=== PATIENT | male | born 1970 | race Caucasian/White ===

== ENCOUNTER 2020-03-24 09:30 | Emergency (ER) | payer SELFPAY ==
[2020-03-24 09:37] VITALS: BP 144/89; PULSE 79; RESP 12; TEMP 36.8; O2SAT 99; BMI 26.1
[2020-03-24 09:55] LABS: Bacteria Urine None Seen
[2020-03-24 09:59] LABS: RBC Urine 5-10/HPF (0-5/HPF); WBC Urine 30-100/HPF (0-5/HPF)
[2020-03-24 10:00] LABS: Culture Indicated Urine Specimen Cultured; Squamous Epithelial Cell Urine 0-1 /HPF (0-5/HPF)
--- NOTE | 2020-03-24 10:20 | ED_ITS ---
HPI - Male Genitourinary General Chief complaint: Urogenital-Male Stated complaint: low back pain/kidney issues x2 weeks Time Seen by Provider: 03/24/20 10:18 Source: patient Mode of arrival: Ambulatory Limitations: no limitations History of Present Illness HPI Narrative: This is a 49-year-old male who comes to the emergency department with complaint of flank pain, occasional testicular pain as well as discomfort with urination although he denies dysuria he states it just sort of hurts in his lower belly when he urinates. He has a sense of urgency and frequency with incomplete emptying. Patient has had symptoms for several days to a week. He has not had fevers but has felt unwell. He has not had any nausea or vomiting. He denies any abdominal pain at this point. He states flank pains been intermittent on both sides and not constant. He denies any penile discharge or hematuria. Patient is sexually active, he states he is . He denies any prior infections. Patient denies any medical issues, no prior surgeries. Denies any allergies to medications. Related Data Previous Rx's Medication Instructions Recorded levofloxacin [Levaquin] 500 mg PO DAILY #10 tab 03/24/20 Review of Systems Review of Systems ROS Unobtainable: All systems reviewed & are unremarkable except as noted in HPI and below Patient History Social History Smoking Status: Never smoker Smoking Status: Never smoker alcohol intake frequency: a few times a month Substance Use Type: marijuana Exam Narrative Exam Narrative: GENERAL: Alert and oriented x three, well-nourished male in mild distress. HEENT: Head normocephalic, atraumatic, EOMI, pupils reactive, face symmetric, moist mucous membranes NECK: Supple, full range of motion CARDIOVASCULAR: Regular rate and rhythm without murmurs, rubs or gallops. RESPIRATORY: Breath sounds equal bilaterally, no wheezes rales or rhonchi. ABDOMEN: Soft, nontender. Normoactive bowel sounds all 4 quadrants. No guarding or rebound, rigidity, no mass : mild bilateral CVA tenderness, male exam deferred. EXTREMITIES: Normal range of motion, no clubbing or edema. Neurovascularly intact NEUROLOGICAL: Cranial nerves II through XII grossly intact. Moving all extremities SKIN: Warm, dry, no petechiae, no rashes or lesions. Initial Vital Signs Initial Vital Signs: Vital Signs Temperature 98.3 F 03/24/20 09:37 Pulse Rate 79 03/24/20 09:37 Respiratory Rate 12 03/24/20 09:37 Blood Pressure 144/89 H 03/24/20 09:37 Pulse Oximetry 99 03/24/20 09:37 Course Orders Ordered: ED Orders 03/24/20 09:42 Chlamydia Gonorrhea PCR -URINE Stat Urine Culture Stat Urine Microscopic Stat Vital Signs Vital signs: Vital Signs - 8 hr 03/24/20 09:37 03/24/20 10:52 Temperature 98.3 F Pulse Rate 79 72 Respiratory Rate 12 16 Blood Pressure 144/89 H Pulse Oximetry 99 99 MDM - Male Genitourinary Lab Data Labs: Lab Results 03/24/20 03/24/20 Range/Units 09:42 09:42 Urine RBC 5-10/hpf H (0-5/HPF) Urine WBC 30-100/hpf H (0-5/HPF) Ur Squamous Epith Cells 0-1 /hpf (0-5/HPF) Urine Bacteria None seen (None) Ur Culture Indicated? Specimen cultured Ur Chlamydia DNA (PCR) Not detected N gonorrhoeae DNA (PCR) Not detected Urine Dip Bedside Urine Glucose Negative Bedside Urine Bilirubin - Negative Bedside Urine Ketone - Negative Urine Specific [place] 1.010 Bedside Urine Occult Blood + Bedside Urine pH 6.0 Bedside Urine Protein +/- 15 Bedside Urine Urobilinogen - Negative Bedside Urine Nitrite - Negative Bedside Urine Leukocytes +++ 500 Esterase MDM Narrative Medical decision making narrative: Patient urine does show leukocyte esterase with symptoms was started on Levaquin. He has had occasional intermittent testicular pain but not constantly so discussed that orchitis epididymitis might be on the differential and covered from this perspective. Patient did have urine gonorrhea chlamydia sent as well but had not resulted prior to discharge. Urine culture is pending and patient aware that tests are pending. Urine GC is negative. Discharge Plan Departure Patient Disposition: Home Clinical Impression: Urinary tract infection Discharge Date/Time: 03/24/20 10:53 Instructions: DI for Urinary Tract Infection (UTI) Activity Restrictions/Additional Instructions: Follow up in the next 5-7 days if your symptoms are not improving. Your urine does show signs suspicious for infection, culture and additional lab tests are pending. If these show changes that you need additional or changes to your medication you will be contacted by phone. Take antibiotics once daily until gone. Continue to make sure your hydrating with plenty of fluids. Return to the ER for fevers, increasing back or flank pain persistent vomiting, new abdominal pain, increasing or new testicular pain, penile discharge or other new or concerning symptoms. Prescriptions: New levofloxacin [Levaquin] 500 mg tablet 500 mg PO DAILY Qty: 10 RF: 0
[2020-03-24 10:52] VITALS: PULSE 72; RESP 16; O2SAT 99
[2020-03-24 12:47] LABS: Urine N gonorrhoeae NOT DETECTED
[2020-03-24 13:12] LABS: Urine Chlamydia NOT DETECTED
== END 2020-03-24 10:53 | disposition home or self-care (01) ==
PROVIDERS: Emergency Provider Emergency Medicine
DX: N39.0 Urinary tract infection, site not specified (principal)
CPT/HCPCS: 81003; 81015; 87077; 87086; 87186; 87491; 87591; 99282

== ENCOUNTER → 2020-09-15 09:38 | Outpatient (CLI) | payer OTHER, MEDICAID, SELFPAY ==
[2020-09-15 10:21] LABS: Cholesterol 176 mg/dL (140-199); HDL Cholesterol 64 mg/dL (40-60); Hemoglobin A1C% w Est Avg Glu 5.3 % (4.0-6.0); LDL Cholesterol Calculated 95 mg/dL (<100); Triglycerides 83 mg/dL (35-150)
== END ==
PROVIDERS: PCP Family Medicine; Referring Provider Family Medicine; Visit Provider Family Medicine
DX: Z00.01 Encounter for general adult medical examination with abnormal findings (principal)
CPT/HCPCS: 36415; 80061; 83036

== ENCOUNTER 2021-05-05 22:27 | Emergency (ER) | payer OTHER, MEDICAID, SELFPAY ==
--- NOTE | 2021-05-05 23:45 | PC.NURSE ---
This [employer]ER requests if Pt is willing to provide a urine sample and lab draw. Pt states that is western medicine and there is NO fucking way you are going to take anything out of my body Pt wants a phone to contact someone refered to as a shaman named Debbi, Pt states She knows how to help him complete his mission and one way or another he will leave to do what needs to be done and no one is going to stop me.
--- NOTE | 2021-05-06 00:21 | PC.NURSE ---
Pt agitated stating i can get anyone to do whatever i want Demanding that we call Debbi Burton to come pick him up. 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 Per PD TESSIE report pt was given comor[place] herbal medication in which brought him a sense of enlightenment and has become acutely psychotic since. Was found at [facility] naked speaking nonsensical things to people and banging on car windows. Refusing vitals, refusing to given urine or obtain blood sample because fuck that, that's western medicine and its bullshit Pt scared that we are going to lock him in room. Advised we legally cannot lock him in room unless he becomes a threat to staff or others. Contracted with pt for safety.
--- NOTE | 2021-05-06 00:27 | ED_ITS ---
HPI - Psych <Jes Apple MD - Last Filed: 05/12/21 18:21> General Chief Complaint: Psychiatric Symptoms Stated Complaint: psych Time Seen by Provider: 05/06/21 00:27 Source: police Mode of arrival: Ambulatory History of Present Illness HPI Narrative: 50-year-old gentleman with a history of depression, drug use including cocaine and methamphetamine in the past brought in by police with concerns for janice. Per report patient was at [facility] and ran into some people who operate the [employer]. Their website indicates that they use ayahuasca (a hallucinogen) to help with multiple different medical issues. Patient states that he used this substance on Sunday and since then has been having increasing grandiose ideas delusional thinking and increasingly manic type behavior. He apparently gave away all of his clothes because there were others that needed at more than he did. He was approaching others including children with ferns as is only covering. He was quite pressured and agitated an d talking about people going to in the town burning down. Patient indicated that he was off of his Effexor and trazodone and did try the [place]cu[place] herb offered to him a number of days ago and feels that ?it enlightened? him. In the emergency room he is agitated, pressured, tangential and delusional. Hostile and aggressive at times than retreating to the back of the room at other times. Related Data Previous Rx's Medication Instructions Recorded terbinafine HCl 250 mg tablet 250 mg PO DAILY #96 tab 03/03/21 trazodone 50 mg tablet 50 mg PO BEDTIME PRN #90 tab 04/20/21 venlafaxine 150 mg 150 mg PO DAILY #90 cap 04/25/21 capsule,extended release 24 hr venlafaxine 75 mg capsule,extended 75 mg PO DAILY #90 cap 04/25/21 release 24 hr Allergies Allergy/AdvReac Type Severity Reaction Status Date / Time No Known Drug Allergies Allergy Unverified 09/15/20 08:59 Review of Systems <Jes Apple MD - Last Filed: 05/12/21 18:21> Review of Systems ROS Unobtainable: Unobtainable due to mental status/LOC Patient History <Jes Apple MD - Last Filed: 05/12/21 18:21> Medical History Anxiety Chicken pox (~1979) Colitis Cystitis Depression Onychomycosis Sleep disorder Substance abuse Surgical History History of vasectomy Social History Smoking Status: Never smoker Smoking Status: Never smoker alcohol intake frequency: a few times a month Substance Use Type: marijuana Exam <Jes Apple MD - Last Filed: 05/12/21 18:21> Narrative Exam Narrative: Exam in general is limited by his acute psychosis, aggressive behavior and unwillingness to allow exam General: Agitated, disheveled Respiratory: Able to speak in full sentences, no obvious respiratory distress Skin: No obvious rashes, warm and dry Neurologic: Grossly intact no obvious asymmetries or abnormalities Psych: Pressured speech, grandiose thoughts, tangential Initial Vital Signs Initial Vital Signs: Vital Signs Pulse Rate 61 05/06/21 03:45 Respiratory Rate 14 05/06/21 03:45 Pulse Oximetry 97 05/06/21 03:45 <Shayla Vital DO - Last Filed: 05/06/21 20:19> Initial Vital Signs Initial Vital Signs: Vital Signs Pulse Rate 61 05/06/21 03:45 Respiratory Rate 14 05/06/21 03:45 Pulse Oximetry 97 05/06/21 03:45 Course <Jes Apple MD - Last Filed: 05/12/21 18:21> Orders Ordered: Discontinued Medications Diphenhydramine HCl (Diphenhydramine 50 Mg/Ml Vial) 50 mg IM NOW ONE Stop: 05/06/21 01:01 Last Admin: 05/06/21 02:33 Dose: 50 mg Documented by: [email or web address] Haloperidol (Haloperidol 5 Mg/Ml Vial) 10 mg IM NOW ONE Stop: 05/06/21 01:01 Last Admin: 05/06/21 02:32 Dose: 10 mg Documented by: [email or web address] Lorazepam (Lorazepam 2 Mg/Ml Inj) 2 mg IM NOW ONE Stop: 05/06/21 01:01 Last Admin: 05/06/21 02:32 Dose: 2 mg Documented by: [email or web address] Vital Signs Vital signs: Vital Signs - 8 hr 05/06/21 17:47 Pulse Rate 90 Blood Pressure 129/75 Pulse Oximetry 96 <Shayla Vital DO - Last Filed: 05/06/21 20:19> Orders Ordered: Discontinued Medications Diphenhydramine HCl (Diphenhydramine 50 Mg/Ml Vial) 50 mg IM NOW ONE Stop: 05/06/21 01:01 Last Admin: 05/06/21 02:33 Dose: 50 mg Documented by: [email or web address] Haloperidol (Haloperidol 5 Mg/Ml Vial) 10 mg IM NOW ONE Stop: 05/06/21 01:01 Last Admin: 05/06/21 02:32 Dose: 10 mg Documented by: [email or web address] Lorazepam (Lorazepam 2 Mg/Ml Inj) 2 mg IM NOW ONE Stop: 05/06/21 01:01 Last Admin: 05/06/21 02:32 Dose: 2 mg Documented by: SARA Vital Signs Vital signs: Vital Signs - 8 hr 05/06/21 17:47 Pulse Rate 90 Blood Pressure 129/[address] [facility] - Psych <Jes Apple MD - Last Filed: 05/12/21 18:21> Medical Records Attestation: I reviewed the patient's medical records. Lab Data Attestation: I reviewed the patient's lab results. Result diagrams: 05/06/21 18:40 05/06/21 18:40 Labs: Lab Results 05/06/21 05/06/21 05/06/21 Range/Units 11:00 11:50 11:50 WBC 8.7 (4.5-11.0) X10^3/uL RBC 4.42 L (4.5-5.9) X10^6/uL Hgb 13.7 (13.5-17.5) g/dL Hct 40.5 L (41-53) % MCV 91.8 (80-100) fL MCH 31.1 (26-34) PG MCHC 33.8 (30-36) % RDW 13.4 (11.6-14.8) % Plt Count 282 (150-400) X10^3/uL Neut % (Auto) 74.1 (50-75) % Lymph % (Auto) 17.2 L (25-40) % [place] % (Auto) 8.1 (3-14) % Eos % (Auto) 0.2 L (2-4) % Baso % (Auto) 0.4 (0-2) % Neut # (Auto) 6500 (9178-9224) /uL Lymph # (Auto) 1500 (6999-3398) /uL [place] # (Auto) 700 (0-900) /uL Eos # (Auto) 0 (0-450) /uL Baso # (Auto) 0 (0-100) /uL Sodium 137 (137-145) mmol/L Potassium 4.2 (3.4-5.1) mmol/L Chloride 101 (98-107) mmol/L Carbon Dioxide 24 (22-32) mmol/L BUN 15 (9-20) mg/dL Creatinine 0.67 (0.66-1.25) mg/dL Estimated GFR > 60.0 (>60) mL/min BUN/Creatinine Ratio 22.4 H (6-22) Glucose 85 (70-100) mg/dL Calcium 9.6 (8.4-10.2) mg/dL Total Bilirubin 1.3 (0.2-1.3) mg/dL AST 96 H (17-59) IU/L ALT 40 (<50) IU/L Alkaline Phosphatase 85 (38-126) U/L Total Protein 7.9 (6.3-8.2) g/dL Albumin 4.8 (3.5-5.0) g/dL Globulin 3.1 (1.7-4.1) g/dL Albumin/Globulin Ratio 1.5 (1.0-2.8) U Opiates 300ng/mL cut Negative (Negative) Ur Oxycodone Screen Negative (Negative) Urine Methadone Screen Negative (Negative) Ur Barbiturates Screen Negative (Negative) U Tricyclic Antidepress Negative (Negative) Ur Phencyclidine Scrn Negative (Negative) Ur Amphetamines Screen Negative (Negative) U Methamphetamines Scrn Negative (Negative) Ur MDMA Scrn (Ecstasy) Negative (Negative) U Benzodiazepines Scrn Negative (Negative) Urine Cocaine Screen Negative (Negative) U Marijuana (THC) Screen Positive H (Negative) Ethyl Alcohol < 10 ( - 10) mg/dL SARS-CoV-2 (PCR) (Negative) 05/06/21 05/06/21 05/06/21 Range/Units 13:12 17:45 18:40 WBC 8.7 (4.5-11.0) X10^3/uL RBC 4.30 L (4.5-5.9) X10^6/uL Hgb 13.4 L (13.5-17.5) g/dL Hct 39.3 L (41-53) % MCV 91.4 (80-100) fL MCH 31.1 (26-34) PG MCHC 34.0 (30-36) % RDW 13.2 (11.6-14.8) % Plt Count 290 (150-400) X10^3/uL Neut % (Auto) 63.0 (50-75) % Lymph % (Auto) 26.0 (25-40) % [place] % (Auto) 9.8 (3-14) % Eos % (Auto) 0.7 L (2-4) % Baso % (Auto) 0.5 (0-2) % Neut # (Auto) 5500 (8016-4750) /uL Lymph # (Auto) 2300 (3390-9588) /uL [place] # (Auto) 900 (0-900) /uL Eos # (Auto) 100 (0-450) /uL Baso # (Auto) 0 (0-100) /uL Sodium (137-145) mmol/L Potassium (3.4-5.1) mmol/L Chloride (98-107) mmol/L Carbon Dioxide (22-32) mmol/L BUN (9-20) mg/dL Creatinine (0.66-1.25) mg/dL Estimated GFR (>60) mL/min BUN/Creatinine Ratio (6-22) Glucose (70-100) mg/dL Calcium (8.4-10.2) mg/dL Total Bilirubin (0.2-1.3) mg/dL AST (17-59) IU/L ALT (<50) IU/L Alkaline Phosphatase (38-126) U/L Total Protein (6.3-8.2) g/dL Albumin (3.5-5.0) g/dL Globulin (1.7-4.1) g/dL Albumin/Globulin Ratio (1.0-2.8) U Opiates 300ng/mL cut (Negative) Ur Oxycodone Screen (Negative) Urine Methadone Screen (Negative) Ur Barbiturates Screen (Negative) U Tricyclic Antidepress (Negative) Ur Phencyclidine Scrn (Negative) Ur Amphetamines Screen (Negative) U Methamphetamines Scrn (Negative) Ur MDMA Scrn (Ecstasy) (Negative) U Benzodiazepines Scrn (Negative) Urine Cocaine Screen (Negative) U Marijuana (THC) Screen (Negative) Ethyl Alcohol ( - 10) mg/dL SARS-CoV-2 (PCR) Negative Negative (Negative) 05/06/21 05/06/21 Range/Units 18:40 19:05 WBC (4.5-11.0) X10^3/uL RBC (4.5-5.9) X10^6/uL Hgb (13.5-17.5) g/dL Hct (41-53) % MCV (80-100) fL MCH (26-34) PG MCHC (30-36) % RDW (11.6-14.8) % Plt Count (150-400) X10^3/uL Neut % (Auto) (50-75) % Lymph % (Auto) (25-40) % [place] % (Auto) (3-14) % Eos % (Auto) (2-4) % Baso % (Auto) (0-2) % Neut # (Auto) (4805-4910) /uL Lymph # (Auto) (9683-9206) /uL [place] # (Auto) (0-900) /uL Eos # (Auto) (0-450) /uL Baso # (Auto) (0-100) /uL Sodium 137 (137-145) mmol/L Potassium 3.9 (3.4-5.1) mmol/L Chloride 102 (98-107) mmol/L Carbon Dioxide 28 (22-32) mmol/L BUN 16 (9-20) mg/dL Creatinine 0.62 L (0.66-1.25) mg/dL Estimated GFR > 60.0 (>60) mL/min BUN/Creatinine Ratio 25.8 H (6-22) Glucose 132 H (70-100) mg/dL Calcium 9.7 (8.4-10.2) mg/dL Total Bilirubin 0.7 (0.2-1.3) mg/dL AST 88 H (17-59) IU/L ALT 40 (<50) IU/L Alkaline Phosphatase 69 (38-126) U/L Total Protein 7.4 (6.3-8.2) g/dL Albumin 4.5 (3.5-5.0) g/dL Globulin 2.9 (1.7-4.1) g/dL Albumin/Globulin Ratio 1.6 (1.0-2.8) U Opiates 300ng/mL cut Negative (Negative) Ur Oxycodone Screen Negative (Negative) Urine Methadone Screen Negative (Negative) Ur Barbiturates Screen Negative (Negative) U Tricyclic Antidepress Negative (Negative) Ur Phencyclidine Scrn Negative (Negative) Ur Amphetamines Screen Negative (Negative) U Methamphetamines Scrn Negative (Negative) Ur MDMA Scrn (Ecstasy) Negative (Negative) U Benzodiazepines Scrn Positive H (Negative) Urine Cocaine Screen Negative (Negative) U Marijuana (THC) Screen Positive H (Negative) Ethyl Alcohol < 10 ( - 10) mg/dL SARS-CoV-2 (PCR) (Negative) Urine Dip Bedside Urine Glucose Negative Bedside Urine Bilirubin - Negative Bedside Urine Ketone ++ 40 Urine Specific [place] 1.025 Bedside Urine Occult Blood - Negative Bedside Urine pH 6.0 Bedside Urine Protein - Negative Bedside Urine Urobilinogen - Negative Bedside Urine Nitrite - Negative Bedside Urine Leukocytes - Negative Esterase MDM Narrative Medical decision making narrative: 50-year-old gentleman presents with manic type behavior. He has a history of depression but has not been diagnosed specifically with bipolar depression, also does not follow-up with psychiatric providers. Complete exam is not permitted, he does not allow blood work and with significant coaxing he does allow injections (Benadryl, Ativan, Haldol) so that he can finally sleep. He notes he has not slept in a number of days. He was trying to negotiate allowing the injections so that he could sleep and then being allowed to contact the show man who provided him with the [place]cuad[place] herbs that allowed him to be ?enlightened? period. Sleeping nicely after the sedation is administered. Will need to be further evaluated once he awakes hopefully a bit more sobered. <Shayla Vital, DO - Last Filed: 05/06/21 20:19> Lab Data Labs: Lab Results 05/06/21 05/06/21 05/06/21 Range/Units 11:00 11:50 11:50 WBC 8.7 (4.5-11.0) X10^3/uL RBC 4.42 L (4.5-5.9) X10^6/uL Hgb 13.7 (13.5-17.5) g/dL Hct 40.5 L (41-53) % MCV 91.8 (80-100) fL MCH 31.1 (26-34) PG MCHC 33.8 (30-36) % RDW 13.4 (11.6-14.8) % Plt Count 282 (150-400) X10^3/uL Neut % (Auto) 74.1 (50-75) % Lymph % (Auto) 17.2 L (25-40) % [place] % (Auto) 8.1 (3-14) % Eos % (Auto) 0.2 L (2-4) % Baso % (Auto) 0.4 (0-2) % Neut # (Auto) 6500 (8471-1106) /uL Lymph # (Auto) 1500 (4671-5262) /uL [place] # (Auto) 700 (0-900) /uL Eos # (Auto) 0 (0-450) /uL Baso # (Auto) 0 (0-100) /uL Sodium 137 (137-145) mmol/L Potassium 4.2 (3.4-5.1) mmol/L Chloride 101 (98-107) mmol/L Carbon Dioxide 24 (22-32) mmol/L BUN 15 (9-20) mg/dL Creatinine 0.67 (0.66-1.25) mg/dL Estimated GFR > 60.0 (>60) mL/min BUN/Creatinine Ratio 22.4 H (6-22) Glucose 85 (70-100) mg/dL Calcium 9.6 (8.4-10.2) mg/dL Total Bilirubin 1.3 (0.2-1.3) mg/dL AST 96 H (17-59) IU/L ALT 40 (<50) IU/L Alkaline Phosphatase 85 (38-126) U/L Total Protein 7.9 (6.3-8.2) g/dL Albumin 4.8 (3.5-5.0) g/dL Globulin 3.1 (1.7-4.1) g/dL Albumin/Globulin Ratio 1.5 (1.0-2.8) U Opiates 300ng/mL cut Negative (Negative) Ur Oxycodone Screen Negative (Negative) Urine Methadone Screen Negative (Negative) Ur Barbiturates Screen Negative (Negative) U Tricyclic Antidepress Negative (Negative) Ur Phencyclidine Scrn Negative (Negative) Ur Amphetamines Screen Negative (Negative) U Methamphetamines Scrn Negative (Negative) Ur MDMA Scrn (Ecstasy) Negative (Negative) U Benzodiazepines Scrn Negative (Negative) Urine Cocaine Screen Negative (Negative) U Marijuana (THC) Screen Positive H (Negative) Ethyl Alcohol < 10 ( - 10) mg/dL SARS-CoV-2 (PCR) (Negative) 05/06/21 05/06/21 05/06/21 Range/Units 13:12 17:45 18:40 WBC 8.7 (4.5-11.0) X10^3/uL RBC 4.30 L (4.5-5.9) X10^6/uL Hgb 13.4 L (13.5-17.5) g/dL Hct 39.3 L (41-53) % MCV 91.4 (80-100) fL MCH 31.1 (26-34) PG MCHC 34.0 (30-36) % RDW 13.2 (11.6-14.8) % Plt Count 290 (150-400) X10^3/uL Neut % (Auto) 63.0 (50-75) % Lymph % (Auto) 26.0 (25-40) % [place] % (Auto) 9.8 (3-14) % Eos % (Auto) 0.7 L (2-4) % Baso % (Auto) 0.5 (0-2) % Neut # (Auto) 5500 (5041-8024) /uL Lymph # (Auto) 2300 (9150-6733) /uL [place] # (Auto) 900 (0-900) /uL Eos # (Auto) 100 (0-450) /uL Baso # (Auto) 0 (0-100) /uL Sodium (137-145) mmol/L Potassium (3.4-5.1) mmol/L Chloride (98-107) mmol/L Carbon Dioxide (22-32) mmol/L BUN (9-20) mg/dL Creatinine (0.66-1.25) mg/dL Estimated GFR (>60) mL/min BUN/Creatinine Ratio (6-22) Glucose (70-100) mg/dL Calcium (8.4-10.2) mg/dL Total Bilirubin (0.2-1.3) mg/dL AST (17-59) IU/L ALT (<50) IU/L Alkaline Phosphatase (38-126) U/L Total Protein (6.3-8.2) g/dL Albumin (3.5-5.0) g/dL Globulin (1.7-4.1) g/dL Albumin/Globulin Ratio (1.0-2.8) U Opiates 300ng/mL cut (Negative) Ur Oxycodone Screen (Negative) Urine Methadone Screen (Negative) Ur Barbiturates Screen (Negative) U Tricyclic Antidepress (Negative) Ur Phencyclidine Scrn (Negative) Ur Amphetamines Screen (Negative) U Methamphetamines Scrn (Negative) Ur MDMA Scrn (Ecstasy) (Negative) U Benzodiazepines Scrn (Negative) Urine Cocaine Screen (Negative) U Marijuana (THC) Screen (Negative) Ethyl Alcohol ( - 10) mg/dL SARS-CoV-2 (PCR) Negative Negative (Negative) 05/06/21 05/06/21 Range/Units 18:40 19:05 WBC (4.5-11.0) X10^3/uL RBC (4.5-5.9) X10^6/uL Hgb (13.5-17.5) g/dL Hct (41-53) % MCV (80-100) fL MCH (26-34) PG MCHC (30-36) % RDW (11.6-14.8) % Plt Count (150-400) X10^3/uL Neut % (Auto) (50-75) % Lymph % (Auto) (25-40) % [place] % (Auto) (3-14) % Eos % (Auto) (2-4) % Baso % (Auto) (0-2) % Neut # (Auto) (2892-3167) /uL Lymph # (Auto) (3824-5919) /uL [place] # (Auto) (0-900) /uL Eos # (Auto) (0-450) /uL Baso # (Auto) (0-100) /uL Sodium 137 (137-145) mmol/L Potassium 3.9 (3.4-5.1) mmol/L Chloride 102 (98-107) mmol/L Carbon Dioxide 28 (22-32) mmol/L BUN 16 (9-20) mg/dL Creatinine 0.62 L (0.66-1.25) mg/dL Estimated GFR > 60.0 (>60) mL/min BUN/Creatinine Ratio 25.8 H (6-22) Glucose 132 H (70-100) mg/dL Calcium 9.7 (8.4-10.2) mg/dL Total Bilirubin 0.7 (0.2-1.3) mg/dL AST 88 H (17-59) IU/L ALT 40 (<50) IU/L Alkaline Phosphatase 69 (38-126) U/L Total Protein 7.4 (6.3-8.2) g/dL Albumin 4.5 (3.5-5.0) g/dL Globulin 2.9 (1.7-4.1) g/dL Albumin/Globulin Ratio 1.6 (1.0-2.8) U Opiates 300ng/mL cut Negative (Negative) Ur Oxycodone Screen Negative (Negative) Urine Methadone Screen Negative (Negative) Ur Barbiturates Screen Negative (Negative) U Tricyclic Antidepress Negative (Negative) Ur Phencyclidine Scrn Negative (Negative) Ur Amphetamines Screen Negative (Negative) U Methamphetamines Scrn Negative (Negative) Ur MDMA Scrn (Ecstasy) Negative (Negative) U Benzodiazepines Scrn Positive H (Negative) Urine Cocaine Screen Negative (Negative) U Marijuana (THC) Screen Positive H (Negative) Ethyl Alcohol < 10 ( - 10) mg/dL SARS-CoV-2 (PCR) (Negative) Urine Dip Bedside Urine Glucose Negative Bedside Urine Bilirubin - Negative Bedside Urine Ketone ++ 40 Urine Specific [place] 1.025 Bedside Urine Occult Blood - Negative Bedside Urine pH 6.0 Bedside Urine Protein - Negative Bedside Urine Urobilinogen - Negative Bedside Urine Nitrite - Negative Bedside Urine Leukocytes - Negative Esterase MDM Narrative Medical decision making narrative: Patient woken around 9:30 a.m.. Was screaming yelling and banging on the door. After discussion he realize he is at the hospital. He states he has been taking any drugs. He is requesting to leave. Patient calmed after he was given something to eat and drink. Patient gave labs, urine was positive for THC. He did not have any other major lab abnormalities that would cause his symptoms today. Patient himself states that he is feeling just fine and does not have any issues today. He was seen by social work. While here he was cooperative door was open and he eloped but then returned under his own power. Patient drug screen be performed which do not show any major changes although his tox screen is positive for benzos but he was given benzos here overnight so this is not unexpected. DCR was contacted and is planning to detain the patient. Patient was accepted by Cristian at [facility] with plan for transfer around 2129 as an involuntary patient. Restraint [id number] <Jes Apple MD - Last Filed: 05/12/21 18:21> Restraint Izad-yw-Kkeg Evaluation Irip-oy-Iwou #1: Date: 05/06/21 Time: 02:21 Patient Appearance: Disheveled and Inappropriate Level of Consciousness: Combative, Inappropriate and Restless Speech Pattern: Excited, Inappropriate, Pressured and Rambling Mood Description: Expansive, Hostile and Labile Ability to Follow Directions: Poor Thought Process: Disorganized, Looseness of association, Tangential and Illogical Respirations: Normal respiratory rate Cardiac: Regular Rate Circulation: Moves all extremities Behavior necessitating restraint: Agitated and Violent Restraint risks explained to patient: No Restraint risks explained to family: No Reaction to Intervention: Agitated, Constant Movement Restraint Needs: Continue Restraints <Shayla Vital DO - Last Filed: 05/06/21 20:19> Restraint Ydmi-[id number] Evaluation Pste-fo-Qbeo #2: Date: 05/06/21 Time: 15:00 Patient Appearance: Unkempt and Inappropriate Level of Consciousness: Alert Speech Pattern: Excited Mood Description: Calm Ability to Follow Directions: Fair Hallucination Type: None Respirations: Normal respiratory rate Cardiac: Regular Rate Circulation: Moves all extremities Behavior necessitating restraint: Attempt to self harm (patient had eloped from department.) Restraint risks explained to patient: Yes Reaction to Intervention: Awake, Resting Quietly Restraint Needs: Continue Restraints Discharge Plan Departure Patient Disposition: Xfer Psychiatric Hosp Clinical Impression: Psychosis Referrals: Chin Lyon MD [Primary Care Provider] -
[2021-05-06] MEDS: LORazepam 2 MG/ML INJ IM (02:32)
[2021-05-06] MEDS: HALOPERIDOL 5 MG/ML VIAL 10 MG IM (02:32)
[2021-05-06] MEDS: diphenhydrAMINE 50 MG/ML VIAL IM (02:33)
--- NOTE | 2021-05-06 03:00 | PC.NURSE ---
Offered patient a urinal several times but patient declined.
[2021-05-06 03:45] VITALS: PULSE 61; RESP 14; O2SAT 97
--- NOTE | 2021-05-06 04:11 | PC.NURSE ---
Pt. appears asleep. Breathes are equal and unlabored. Door is now open.
--- NOTE | 2021-05-06 06:40 | PC.NURSE ---
Pt continued to appear to sleep peacefully, has rolled self to other side independently
[2021-05-06 07:30] VITALS: RESP 16
--- NOTE | 2021-05-06 10:11 | PC.NURSE ---
pt awake and banging on the door. went to go lay back down after a minute. Social work aware of pt being awake.
--- NOTE | 2021-05-06 11:20 | PC.NURSE ---
CONTINUOUS IMPROVEMENT COACH in room speaking with Pt. Pt is lying on mattress on floor speaking calmly with CONTINUOUS IMPROVEMENT COACH
[2021-05-06 11:41] LABS: UR Morphine/Opiate cutoff 300 Negative (Negative); Ur Creatinine Normal (Normal); Ur Specific Gravity Normal (Normal); Urine Amphetamines Negative (Negative); Urine Barbiturates Negative (Negative); Urine Benzodiazepines Negative (Negative); Urine Cocaine Negative (Negative); Urine MDMA Negative (Negative); Urine Methadone Negative (Negative); Urine Methamphetamines Negative (Negative); Urine Oxycodone Negative (Negative); Urine Phencyclidine Negative (Negative); Urine Tetrahydrocannabinol Positive (Negative); Urine Tricyclic Antidepressant Negative (Negative); Urine pH Normal (Normal)
--- NOTE | 2021-05-06 11:53 | PC.NURSE ---
Pt willing to give blood for lab and provide urine sample
[2021-05-06 12:03] LABS: Add Manual Diff / Slide Review NO; Basophils Absolute Auto 0 /uL (0-100); Basophils Percent Auto 0.4 % (0-2); Eosinophils Absolute Auto 0 /uL (0-450); Eosinophils Percent Auto 0.2 % (2-4); Hematocrit 40.5 % (41-53); Hemoglobin 13.7 g/dL (13.5-17.5); Lymphocytes Absolute Auto 1500 /uL (1100-4500); Lymphocytes Percent Auto 17.2 % (25-40); Mean Corpuscular HGB Conc 33.8 % (30-36); Mean Corpuscular Hemoglobin 31.1 PG (26-34); Mean Corpuscular Volume 91.8 fL (80-100); Monocytes Absolute Auto 700 /uL (0-900); Monocytes Percent Auto 8.1 % (3-14); Neutrophils Absolute Auto 6500 /uL (1500-7000); Neutrophils Percent Auto 74.1 % (50-75); Platelet Count 282 X10^3/uL (150-400); Red Blood Cell Count 4.42 X10^6/uL (4.5-5.9); Red Cell Distribution Width 13.4 % (11.6-14.8); White Blood Cell Count 8.7 X10^3/uL (4.5-11.0)
[2021-05-06 12:14] LABS: Alanine Aminotransferase 40 IU/L (<50); Albumin 4.8 g/dL (3.5-5.0); Albumin Globulin Ratio 1.5 (1.0-2.8); Alkaline Phosphatase 85 U/L (38-126); Aspartate Aminotransferase 96 IU/L (17-59); BUN Creatinine Ratio 22.4 (6-22); Bilirubin Total 1.3 mg/dL (0.2-1.3); Blood Urea Nitrogen 15 mg/dL (9-20); Calcium 9.6 mg/dL (8.4-10.2); Carbon Dioxide 24 mmol/L (22-32); Chloride 101 mmol/L (98-107); Estimated Glomerular Filt Rate > 60.0 mL/min (>60); Ethanol (ETOH) < 10 mg/dL; Globulin 3.1 g/dL (1.7-4.1); Glucose 85 mg/dL (70-100); HEMOLYSIS 18 (0-50); Potassium 4.2 mmol/L (3.4-5.1); Sodium 137 mmol/L (137-145); Total Protein 7.9 g/dL (6.3-8.2)
--- NOTE | 2021-05-06 13:01 | PC.NURSE ---
refusing to allow covid swab. audrey bradshaw and ex at bedside.
--- NOTE | 2021-05-06 13:13 | PC.NURSE ---
Pt is in room with ex and BRICK WASHER working out a care plan
[2021-05-06 13:42] LABS: COVID19 -Nasal RAPID Negative (Negative)
--- NOTE | 2021-05-06 14:34 | CM.SWNOTE ---
ENVIRONMENTAL INTERN Note This ENVIRONMENTAL INTERN requested to consult to assess needs of this 50 yo male, arrives via [employer] 6 for concerns of janice. Patient was Hostile and aggressive at times than retreating to the back of the room at other times(ED Report) quite agitated upon presentation, wanted to leave, there was concern for patient's safety so patient was encouraged to stay, he inevitably was agreeable to B52; Haldol, Benadryl, Ativan in order to sleep. Today, patient wakes up agreeable to talk w/this ENVIRONMENTAL INTERN, mostly calm and cooperative w/care. Allows lab draw w/significant encouragement. Patient is lying on the floor, blankets over his head, he sits up, down, up down. Patient's speech is pressured, he is easily agitated and his cognition waxes and wanes. Assessment is challenging as patient can be quite articulate and insightful then quickly digresses into perseveration re: the girl that gave me the stuff, she's a shaman, I need to get a hold of her, I've been trying to call her. Patient does admit he has not felt like himself in the last few days. Patient report, ED report and collateral report indicate; patient has experienced manic features that have escalated in the last three days including: grandiose ideas- feeling strong and immortal, delusions of being called to save the world, feeling energetic, not sleeping, eating or drinking. Impulsive, Poor insight, poor judgment and inability to care for self Patient denies suicidal or homicidal ideation, denies prior suicide attempt and denies family h/o suicide. Patient states I got like that (presentation to the ED last night) because I got so frustrated, no one was helping me. Patient requests this ENVIRONMENTAL INTERN call ex spouse Alvaro, who works as an ENVIRONMENTAL INTERN in the [facility] ED, and gives this ENVIRONMENTAL INTERN permission to discuss and coordinate care plan w/Alvaro. According to Alvaro: patient has had a long standing h/o manic depressive behavior. Patient and Riverside have been for many years, patient has stayed off/on w/Riverside and the kids here in [place]. Alvaro explains she is very worried about patient; he has had increasingly worrisome behaviors over the last week, he has been suspicious of Riverside, patient admits he stopped taking his effexor days ago, and Riverside suspects increasing janice w/the substance taken Sunday at [facility] set him off. Riverside hopeful patient will agree to an inpatient psychiatric stay because she feels he greatly needs stabilization. Patient has been resistant to any help and has not agreed to counseling or psychiatric care. Riverside suspected patient was using meth this week because his behaviors were so uncharacteristic... decreased inhibitions, poor safety awareness, and increased ideas of grandiosity. Met w/patient and w/ex spouse Alvaro in Rm 13 , reviewed goals for DC today and this [facility] [place] and Riverside strongly encouraged patient to consider inpatient psych, possibly [facility](?) for psychiatric care. Patient's willingness for inpatient stay wavered dramatically; patient seemed resolute and agreeable one minute, stated I have been trying to get a psychiatrist then would change his mind stating no fucking way. Patient was inevitably agreeable to Vol stay at [facility] if bed available. JC [facility] [place] - Loading Shovel Oiler Assessment Start: 05/06/21 13:41 Freq: Status: Active Protocol: Document 05/06/21 13:41 JC (Rec: 05/06/21 13:57 JC [id number]) ENVIRONMENTAL INTERN/Loading Shovel Oiler Assessment Start date 05/06/21 Presenting Problem ED report: 50-year-old gentleman with a history of depression, drug use including cocaine and methamphetamine in the past brought in by police with concerns for janice . Per report patient was at [facility] and ran into some people who operate the [employer].Their website indicates that they use ayahuasca (a hallucinogen) to help with multiple different medical issues. Patient states that he used this substance on Sunday and since then has been having increasing grandiose ideas delusional thinking and increasingly manic type behavior. Precipitating Event(s) Chronic symptoms of manic depressive disorder, week long escalation of paranoia grandiose ideas w/delusional thinking. heavy THC user with recent use of ayahuasca (a hallucinogen), offerred to patient at [facility] in [place]. Patient Strengths Has two kids, 11 and 14 yo that want him in their life, are worried, per ex spouse Alvaro. 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 Articulate, has the insight today to admit he does not want to live like this Current Behavioral Health Provider(s) None Include Facility, Provider, Ph. # Psych. Hx Mental Health and Chemical Recent stay (approx 6 mo ago) Dependency at an inpatient psychiatric unit [place], [place]. Started on effexor, managed now by PCP Dr Chin Lyon. H/o heavy ETOH and THC, currently only THC. Patient denies illicit drug use. Family Hx of Behavioral Abuse None reported Psychosocial information & Support Couch surfs. Lives Systems occasionally w/ex spouse Riverside and their children. Not currently working. 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 School/Work Not currently working. States he lives off of unemployment benefits, furloughed from his job at [employer]. Legal Matters - Outstanding Issues None reported Suicidal Ideation (Plan) No Homicidal Ideation (Plan) No Intervention See Narrative
--- NOTE | 2021-05-06 14:41 | PC.NURSE ---
returned from lunch, pt is not in room. notified Dr. Vital, care management and security. charge, Linn Diaz notifying police
--- NOTE | 2021-05-06 14:54 | PC.NURSE ---
1441 Noted patient was no longer in room. Tiffany with social work reports patient was voluntary at this time with no grounds to hold patient.
--- NOTE | 2021-05-06 15:07 | PC.NURSE ---
Pt has returned to the ED on his own. Pt is now back in room and lying on matress with the lights off
--- NOTE | 2021-05-06 15:21 | CM.SWNOTE ---
Addendum entered by JUANCARLOS Junior 05/06/21 15:53: Patient has returned to Rm 13 w/ a bloody cut on his forehead, RN aware. This INTERIOR DESIGN ASSISTANT asks patient what happened? Why did he lave? patient states he needs to be drugged if he is going to be kept here, states he is use to being outside and I haven't been able to dab (marijuana) states he left to go home and was found and picked up by ex spouse Alvaro who talked me into coming back patient states he bumped his head on her car door. Patient will not engage in much conversation re: goals, updated that [facility] no longer can accept patient after elopement, patient states he can't keep his eyes open and needs to sleep. Placed call to [facility] triage to ask for [facility] dispatch to assess for TESSIE. Thania Hester scheduled until 1800, HOLLY Chaparro scheduled overnight. Updated ED team Original Note: INTERIOR DESIGN ASSISTANT Note Spoke w/Rea at [facility] who stated there are male beds available- faxed clinical and patient had been accepted for admission this evening. Dr Foster was the accepting physician. Acceptance at [facility] changed after patient eloped from the ED and per staff, returned to ED Rm 13 (?) on his own volition. This INTERIOR DESIGN ASSISTANT, upon learning that patient had left ER Rm 13, explained to BERNICE Perez that patient denied suicidal ideation or homicidal ideation and was calm and cooperative w/care throughout the day. Patient would not be considered a candidate for long term at time of elopement and so call to [employer] would not be appropriate. Reassessment of need now requested as patient is currently back in R[facility] 13. JC
--- NOTE | 2021-05-06 16:40 | PC.NURSE ---
Pt lying on mattress on floor eyes shut chest rising and falling
[2021-05-06 17:47] VITALS: BP 129/75; PULSE 90; O2SAT 96
[2021-05-06 18:24] LABS: COVID19 -Nasal RAPID Negative (Negative)
[2021-05-06 18:52] LABS: Add Manual Diff / Slide Review NO; Basophils Absolute Auto 0 /uL (0-100); Basophils Percent Auto 0.5 % (0-2); Eosinophils Absolute Auto 100 /uL (0-450); Eosinophils Percent Auto 0.7 % (2-4); Hematocrit 39.3 % (41-53); Hemoglobin 13.4 g/dL (13.5-17.5); Lymphocytes Absolute Auto 2300 /uL (1100-4500); Mean Corpuscular Hemoglobin 31.1 PG (26-34); Mean Corpuscular Volume 91.4 fL (80-100); Monocytes Absolute Auto 900 /uL (0-900); Monocytes Percent Auto 9.8 % (3-14); Neutrophils Absolute Auto 5500 /uL (1500-7000); Platelet Count 290 X10^3/uL (150-400); Red Cell Distribution Width 13.2 % (11.6-14.8); White Blood Cell Count 8.7 X10^3/uL (4.5-11.0)
[2021-05-06 19:01] LABS: Alanine Aminotransferase 40 IU/L (<50); Albumin 4.5 g/dL (3.5-5.0); Albumin Globulin Ratio 1.6 (1.0-2.8); Alkaline Phosphatase 69 U/L (38-126); Aspartate Aminotransferase 88 IU/L (17-59); BUN Creatinine Ratio 25.8 (6-22); Bilirubin Total 0.7 mg/dL (0.2-1.3); Blood Urea Nitrogen 16 mg/dL (9-20); Calcium 9.7 mg/dL (8.4-10.2); Carbon Dioxide 28 mmol/L (22-32); Chloride 102 mmol/L (98-107); Estimated Glomerular Filt Rate > 60.0 mL/min (>60); Ethanol (ETOH) < 10 mg/dL; Globulin 2.9 g/dL (1.7-4.1); Glucose 132 mg/dL (70-100); HEMOLYSIS < 15 (0-50); Potassium 3.9 mmol/L (3.4-5.1); Sodium 137 mmol/L (137-145); Total Protein 7.4 g/dL (6.3-8.2)
[2021-05-06 19:05] LABS: UR Morphine/Opiate cutoff 300 Negative (Negative); Ur Creatinine Normal (Normal); Ur Specific Gravity Normal (Normal); Urine Amphetamines Negative (Negative); Urine Barbiturates Negative (Negative); Urine Benzodiazepines Positive (Negative); Urine Cocaine Negative (Negative); Urine MDMA Negative (Negative); Urine Methadone Negative (Negative); Urine Methamphetamines Negative (Negative); Urine Oxycodone Negative (Negative); Urine Phencyclidine Negative (Negative); Urine Tetrahydrocannabinol Positive (Negative); Urine Tricyclic Antidepressant Negative (Negative); Urine pH Normal (Normal)
--- NOTE | 2021-05-06 20:00 | PC.NURSE ---
Shankar, DCR has been at bedside for a couple of hours now. working on discharging patient.
== END 2021-05-06 21:40 ==
PROVIDERS: Emergency Provider Emergency Medicine; PCP Family Medicine
DX: F29 Unspecified psychosis not due to a substance or known physiological condition (principal); R45.1 Restlessness and agitation; Z20.822 Contact with and (suspected) exposure to COVID-19
CPT/HCPCS: 36415; 80053; 80305; 80320; 81003; 85025; 87635; 96372; 99285; C9803; J1200; J1630; J2060

== ENCOUNTER → 2022-06-18 14:50 | Outpatient (CLI) | payer BC, SELFPAY ==
[2022-06-18 15:39] LABS: COVID19 -Nasal RAPID Negative (Negative)
== END ==
PROVIDERS: PCP Family Medicine; Visit Provider Physician Assistant
DX: N34.3 Urethral syndrome, unspecified (principal); Z20.822 Contact with and (suspected) exposure to COVID-19
CPT/HCPCS: 87077; 87086; 87186; 87635

== ENCOUNTER → 2024-08-30 09:02 | Outpatient (CLI) | payer BC, SELFPAY ==
[2024-08-30 09:37] LABS: Add Manual Diff / Slide Review NO; Basophils Absolute Auto 0 /uL (0-100); Basophils Percent Auto 0.4 % (0-2); Eosinophils Absolute Auto 200 /uL (0-450); Eosinophils Percent Auto 3.5 % (2-4); Hematocrit 42.6 % (41-53); Hemoglobin 14.4 g/dL (13.5-17.5); Lymphocytes Absolute Auto 1800 /uL (1100-4500); Lymphocytes Percent Auto 25.7 % (25-40); Mean Corpuscular HGB Conc 33.7 % (30-36); Mean Corpuscular Hemoglobin 31.3 PG (26-34); Mean Corpuscular Volume 92.9 fL (80-100); Monocytes Absolute Auto 400 /uL (0-900); Monocytes Percent Auto 5.2 % (3-14); Neutrophils Absolute Auto 4500 /uL (1500-7000); Neutrophils Percent Auto 65.2 % (50-75); Platelet Count 286 X10^3/uL (150-400); Red Blood Cell Count 4.59 X10^6/uL (4.5-5.9); Red Cell Distribution Width 13.2 % (11.6-14.8); White Blood Cell Count 6.9 X10^3/uL (4.5-11.0)
[2024-08-30 09:38] LABS: Appearance Urine UA CLEAR; Bilirubin Urine UA NEGATIVE (NEGATIVE); Color Urine UA YELLOW; Glucose Urine UA NEGATIVE (Negative); Ketones Urine UA NEGATIVE (NEGATIVE); Leukocyte Esterase Urine UA NEGATIVE (NEGATIVE); Nitrite Urine UA NEGATIVE (Negative); Occult Blood Urine UA NEGATIVE (Negative); Protein Urine UA NEGATIVE (Negative); Specific Gravity Urine UA 1.015 (1.000-1.035); Urobilinogen Urine UA 0.2 E.U./dL (0.2)
[2024-08-30 09:50] LABS: Bacteria Urine None Seen; Culture Indicated Urine Cult Not Indicated; RBC Urine 0-1/HPF (0-5/HPF); Squamous Epithelial Cell Urine 0-1 /HPF (0-5/HPF); Urine Volume 10mL (spun); WBC Urine 0-1/HPF (0-5/HPF)
[2024-08-30 09:59] LABS: Alanine Aminotransferase 29 IU/L (<50); Albumin 4.5 g/dL (3.5-5.0); Alkaline Phosphatase 65 U/L (38-126); Aspartate Aminotransferase 26 IU/L (17-59); BUN Creatinine Ratio 16.9 (6-22); Bilirubin Total 0.7 mg/dL (0.2-1.3); Blood Urea Nitrogen 15 mg/dL (9-20); Calcium 9.5 mg/dL (8.4-10.2); Carbon Dioxide 26 mmol/L (22-32); Chloride 103 mmol/L (98-107); Cholesterol 163 mg/dL (140-199); Estimated Glomerular Filt Rate > 60 mL/min (>60); Globulin 2.3 g/dL (1.7-4.1); Glucose 100 mg/dL (70-100); HDL Cholesterol 110 mg/dL (40-60); HEMOLYSIS < 15 (0-50); LDL Cholesterol Calculated 46 mg/dL (<100); Potassium 4.4 mmol/L (3.4-5.1); Sodium 138 mmol/L (137-145); Total Protein 6.8 g/dL (6.3-8.2); Triglycerides 35 mg/dL (35-150)
[2024-08-30 11:05] LABS: Urine N gonorrhoeae NOT DETECTED
[2024-08-30 11:26] LABS: Urine Chlamydia NOT DETECTED
[2024-09-01 05:40] LABS: HBsAg Screen Negative (Negative); Hepatitis A Antibody IgM Negative (Negative); Hepatitis B Core Antibody IgM Negative (Negative); Hepatitis C Antibody Non Reactive (Non Reactive)
[2024-09-01 16:56] LABS: HIV 1 & 2 Ab/Ag 4th Gen Combo NEGATIVE (NEGATIVE)
== END ==
PROVIDERS: PCP Family Medicine; Referring Provider Family Medicine; Visit Provider Family Medicine
DX: Z00.00 Encounter for general adult medical examination without abnormal findings (principal); F32.9 Major depressive disorder, single episode, unspecified; F31.9 Bipolar disorder, unspecified; R53.83 Other fatigue; R68.82 Decreased libido; G47.9 Sleep disorder, unspecified; F41.9 Anxiety disorder, unspecified
CPT/HCPCS: 36415; 80053; 80061; 80074; 81001; 84402; 84403; 85025; 86592; 87389; 87491; 87591